=== PATIENT | male | born 1985 | race Two or more races ===

== ENCOUNTER 2024-09-12 22:09 | Emergency (ER) | payer MEDICAID, OTHER ==
[~2024-09-12] VITALS: Ht 170.2 cm; Wt 109.8 kg
[2024-09-12 22:57] LABS: Urine Bacteria None Seen /hpf (None Seen)
[2024-09-12 23:09] LABS: Urine Blood TRACE /uL (Negative); Urine Clarity Turbid (Clear); Urine Color Light-Yellow (Yellow); Urine Mucus FEW (None Seen); Urine Protein, UAD TRACE (Negative); Urine Specific Gravity 1.026 (1.001-1.035); Urine Squamous Epithelial Cell FEW /hpf (<5); Urine Urobilinogen Normal (Negative); Urine WBC 93 /hpf (0 - 3)
[2024-09-13] MEDS ORDERED: FLUC200T50 PO (01:21)
[2024-09-13] MEDS ORDERED: CLOTCRE3 EX (01:21)
--- NOTE | 2024-09-13 01:21 | ED.PDOC ---
General HPI Comments This is a 38-year-old male patient presents to the ED chief complaint penile fungal infection. Patient states currently being treated for yeast infection. Currently on Medrol Dosepak, finished 3 doses of 150 mg fluconazole, and clotrimazole cream. He notes difficulty retracting his foreskin due to the infection. Reports no improvement with current medication regimen. Denies fevers, chills, nausea, vomiting, abdominal pain, testicle pain, difficulty or dysuria. Chief Complaint: Penile Problem Time Seen by MD: 23:02 Reviewed notes: Nurses Notes, Medications, Allergies Home Meds Active Scripts Clotrimazole W/ Betamethasone (Clotrimazole/Betamethason 1-0.05 %) 1 Cre Cre, 1 CRE EX BID for 7 Days, #15 GRAMS Apply a thin layer to the affected area twice daily after bath Prov:CINDA NIÑO [facility] 09/13/24 Fluconazole (Fluconazole) 200 Mg Tab, 1 TAB PO DAILY for 5 Days, #5 TAB Prov:CINDA NIÑO [facility] 09/13/24 Information Source: Patient Mode of Arrival: Ambulatory Past Medical History PAST MEDICAL HISTORY: Denies Surgical History: Denies all surgeries Family History Family History: Reviewed,noncontributory to illness Social History Smoker: Non-Smoker Alcohol: Denies ETOH Use Drugs: Denies Drug Use Constitutional: denies: chills, diaphoresis, fatigue, fever, malaise, sweats, weakness, others EENTM: denies: blurred vision, double vision, ear bleeding, ear discharge, ear drainage, ear pain, ear ringing, eye pain, eye redness, hearing loss, mouth pain, mouth swelling, nasal discharge, nose bleeding, nose congestion, nose pain, photophobia, tearing, throat pain, throat swelling, voice changes, others Respiratory: denies: cough, hemoptysis, orthopnea, SOB at rest, shortness of breath, SOB with excertion, stridor, wheezing, others Cardiovascular: denies: chest pain, dizzy spells, diaphoresis, Dyspnea on exert ion, edema, irregular heart beat, left arm pain, lightheadedness, palpitations, PND, syncope, others Gastrointestinal: denies: abdomen distended, abdominal pain, blood streaked bowels, constipated, diarrhea, dysphagia, difficulty swallowing, hematemesis, melena, nausea, poor appetite, poor fluid intake, rectal bleeding, rectal pain, vomiting, others Genitourinary: reports: penile sore; denies: burning, dysuria, flank pain, frequency, hematuria, incontinence, penile discharge, pain, testicle pain, testicle swelling, urgency, others Neurological: denies: dizziness, fainting, headache, left sided numbness, left sided weakness, numbness, paresthesia, pre-existing deficit, right sided numbness, right sided weakness, seizure, speech problems, tingling, tremors, weakness, others Musculoskeletal: denies: back pain, gout, joint pain, joint swelling, muscle pain, muscle stiffness, neck pain, others Integumetry: denies: bruises, change in color, change in hair/nails, dryness, laceration, lesions, lumps, rash, wounds, others Allergic/Immunocompromised: denies: Difficulty Healing, Frequent Infections, Hives, Itching, others Hematologic/Lymphatic: denies: anemia, blood clots, easy bleeding, easy bruising, swollen glands, others Endocrine: denies: excessive hunger, excessive sweating, excessive thirst, excessive urination, flushing, intolerance to cold, intolerance to heat, unexplained weight gain, unexplained weight loss, others Psychiatric: denies: anxiety, bipolar disorder, depression, hopeless, panic disorder, schizophrenia, sleepless, suicidal, others Physical Exam General Appearance: No Apparent Distress, Normal HEENT: Pharynx Normal Neck: Full Range of Motion, Non-Tender Respiratory: Lungs Clear, No Respiratory Distress, Normal Breath Sounds Cardiovascular: No Murmur, Normal Peripheral Pulses, Regular Rate/Rhythm Breast Exam: Deferred Gastrointestinal: Non Tender, Soft Genitalia: Penis (Distal penile edema with erythema and rash. Difficulty retracting foreskin. Noted sores or lesions. No Noted discharge.) Pelvic: Deferred Rectal: Deferred Extremities: Normal capillary refill, Normal inspection, Normal range of motion, Non-tender, No pedal edema Musculoskeletal : Apperance: Normal Neurologic: Alert, float builder II-XII nml as Tested, No Motor Deficits, Normal Affect, Normal Mood, No Sensory Deficits Cerebellar Function: Normal Reflexes: Normal Skin: Dry, Normal Color, Warm Lymphatic: No Adenopathy Was a procedure done? Was a procedure done?: No Differential Diagnosis Kidney stone (Female): N/A Urinary Problem (Male): Epididymitis, Prostatitis, Urethritis, Urinary Retention, UTI X-Ray, Labs, Meds, VS Vital Signs Date Time Temp Pulse Resp B/P (MAP) Pulse Ox O2 Delivery O2 Flow Rate FiO2 09/13/24 01:38 69 19 94 Room Air 09/13/24 01:38 98.1 69 19 139/84 (102) 94 98.1 09/12/24 22:27 98.1 82 18 150/88 (108) 97 Lab Test 09/12/24 22:35 Range/Units Urine Color Light-yellow Yellow Urine Clarity Turbid H Clear Urine pH 6.0 5.0-9.0 Urine Specific [place] 1.026 1.001-1.035 Urine Protein Trace H Negative Urine Ketones Negative Negative Urine Blood Trace H Negative /uL Urine Nitrite Negative Negative Urine Bilirubin Negative Negative Urine Urobilinogen Normal Negative mg/dL Urine Leukocyte Esterase 3+ Negative /uL Urine RBC 49 0 - 3 /hpf Urine WBC 93 0 - 3 /hpf Urine Squamous Epithelial Cells Few <5 /hpf Urine Bacteria None seen None Seen /hpf Urine Mucus Few None Seen Urine Glucose Normal Normal mg/dL X-Ray, Labs, Meds, VS Comment Start trial of fluconazole 200 mg once daily x5 days. Advised patient to start Medrol Dosepak, start trial of clotrimazole/trim fungal steroid cream combination. Advised to apply after taking a warm bath and retract penis while in warm bath. Has not follow up with his PCP in 2-3 days as necessary. ER return precautions given patient indicated understanding and agrees with discharge plan of care. Time of 1ST Reevaluation: Reevaluation 1ST: Improved Patient Education/Counseling: Diagnosis, Treatment, Prognosis, Need For Follow Up Family Education/Counseling: No Family Present Departure 1 Departure Time of Disposition: :19 Impression: Primary Impression: Balanitis Disposition: HOME / SELF CARE / HOMELESS Condition: Stable e-Prescriptions Clotrimazole W/ Betamethasone (Clotrimazole/Betamethason 1-0.05 %) 1 Cre Cre 1 CRE EX BID for 7 Days, #15 GRAMS Apply a thin layer to the affected area twice daily after bath Prov: CINDA NIÑO 09/13/24 Fluconazole (Fluconazole) 200 Mg Tab 1 TAB PO DAILY for 5 Days, #5 TAB Prov: CINDA NIÑO 09/13/24 Discharged With: Self Critical Care Note Critical Care Time?: No Stability Stability form required: No CINDA NIÑO Sep 13, 2024 01:21
[2024-09-13 01:38] VITALS: BP 139/84; PULSE 69; RESP 19; TEMP 98.1; O2SAT 94
== END 2024-09-13 01:53 | disposition home or self-care (01) ==
LOC: ER 22:09
DX: N48.1 Balanitis (principal)
CPT/HCPCS: 81001